=== PATIENT | female | born 1980 | race Caucasian/White ===

== ENCOUNTER 2017-08-08 12:33 | Inpatient (IN) ==
[2017-08-08] MEDS ORDERED: HYDROmorphone 2 MG/ML SYRINGE IV PRN (12:44)
[2017-08-08] MEDS ORDERED: ONDANSETRON 4 MG/2 ML VIAL IV ONE ×2 (12:44→15:26)
[2017-08-08] MEDS ORDERED: KETOROLAC 30 MG/ML VIAL IV ONE (13:06)
[2017-08-08] MEDS ORDERED: METHOCARBAMOL 1,000 MG/10 ML VIAL IV ONE (13:06)
[2017-08-08] MEDS ORDERED: 0.9 % SODIUM CHLORIDE 1,000 ML IV ONE ×3 (13:07→19:22)
[2017-08-08 13:53] LABS: Basophils # (Auto) 0 K/mcL (0.0-0.3); Basophils % (Auto) 0.2 % (0.0-2.0); Eosinophils # (Auto) 0 K/mcL (0.0-0.7); Eosinophils % (Auto) 0.4 % (0.0-7.0); Granulocytes % (Auto) 61.9 % (38.0-78.0); Lymphocytes # (Auto) 2.6 K/mcL (1.5-4.8); Lymphocytes % (Auto) 30.6 % (15.5-49.0); Mean Cell Volume 88.9 fL (80.0-100.0); Mean Corpuscular HGB Conc 33.5 g/dL (31.0-36.0); Mean Corpuscular Hemoglobin 29.8 pg (26.0-34.0); Monocytes # (Auto) 0.6 K/mcL (0.1-0.9); Monocytes % (Auto) 6.9 % (1.0-12.0); Platelet Count 261 K/mcL (140-440); RBC 4.49 M/mcL (4.00-5.20); Red Cell Distribution Width 13.8 % (11.5-14.5)
[2017-08-08 14:11] LABS: ALT/SGPT 15 U/l (0-40); Albumin 4.1 gm/dL (3.2-5.2); Albumin/Globulin Ratio 1.2 (1.0-2.3); Alkaline Phosphatase 67 U/L (39-117); Blood Urea Nitrogen 20 mg/dl (6-20)
--- NOTE | 2017-08-08 14:36 | Ultrasound Report ---
CLINICAL INFORMATION: Right lower quadrant abdominal pain. Left lower quadrant abdominal pain. TECHNIQUE: Grayscale and color flow Doppler spectral imaging COMPARISON: Previous examination dated 10/17/2014 FINDINGS: Negative gallbladder. No cholelithiasis. No gallbladder wall thickening. No pericholecystic fluid. No dilated bile ducts. Common bile that measures 5.6 mm. No intrahepatic bile duct dilatation. Normal homogeneous liver parenchyma. There is a single cyst in the left lobe measuring 15 mm. No solid mass. Normal smooth liver contour. No ascites. Visualized portions of the pancreas are negative. Right kidney measures 9.2 x 3.8 x 4.1 cm. There is a probable nonobstructing 9 mm right upper pole calculus. No solid or cystic mass. No hydronephrosis. Left kidney measures 10.4 x 4.6 x 4.8 cm. No solid or cystic mass. No hydronephrosis. No splenomegaly. Normal hepatopedal portal venous flow. Aorta and inferior vena cava are normal. Patient complains of pain in both lower quadrants. These areas were scanned and there is no focal abnormality. IMPRESSION: 1. Nonobstructing right upper pole renal calculus 2. No other abnormality. Interpreted and Authenticated by: Branden Garcia 08/08/17
[2017-08-08] MEDS ORDERED: NITROFURANTOIN SR 100 MG CAPSULE PO ONE (15:22)
[2017-08-08] MEDS ORDERED: PHENAZOPYRIDINE 200 MG TABLET PO ONE (15:22)
--- NOTE | 2017-08-08 15:24 | Emergency Department Note ---
Abdominal Pain HPI - General Chief Complaint: Abdominal Pain Stated Complaint: Left sided abdominal pain Time Seen by Provider: 08/08/17 13:06 Source: patient Mode of arrival: ambulatory Limitations: no limitations - History of Present Illness HPI Narrative: 37-year-old female comes in for left-sided pain over the last 24 hours. Has had previously but was on the right side before. Nausea vomiting cramping. Her menses stopped yesterday. Unclear if she has had a fever - Related Data Previous Rx's Medication Instructions Recorded Nitrofurantoin Monohyd/M-Cryst 100 mg PO BID #14 capsule 08/08/17 [Macrobid 100 mg Capsule] Allergies Allergy/AdvReac Type Severity Reaction Status Date / Time Penicillins Allergy Severe Anaphylaxis Verified 08/08/17 20:09 Review of Systems All systems ED: reviewed and negative except as stated. Abdominal Pain PMH - Past Medical History Attestation: Yes: The following information was validated with the patient. Medical history: Reports: migraine Surgical history ED: Reports: tonsillectomy, other (Regard IUD 6-8 years) - Social History Smoking status: Never smoker Physical Exam Vomiting on initial exam. Thin female . normocephalic atraumatic. Conjunctive are clear sclerae nonicteric. No nasal discharge or congestion. Oropharynx pink somewhat dry. Neck is supple without lymphadenopathy or thyromegaly. Heart is regular rate and rhythm no murmur appreciated. Lungs are clear to auscultation bilaterally without wheezes rales rhonchi or respiratory distress. Abdomen is soft nondistended diffusely tender in the lower quadrants as well as left CVA area. Some guarding. No pedal edema. +2 radial pulse. Alert and oriented - General Limitations: no limitations Course Vital Signs Temperature 97.5 F 08/08/17 12:33 Pulse Rate 80 08/08/17 12:33 Respiratory Rate 18 08/08/17 12:33 Blood Pressure 111/72 08/08/17 12:33 Pulse Oximetry (%) 100 08/08/17 12:33 Temperature 99.4 F H 08/09/17 06:54 Pulse Rate 99 H 08/09/17 06:54 Respiratory Rate 14 08/09/17 06:54 Blood Pressure 95/62 08/09/17 06:54 Pulse Oximetry (%) 97 08/09/17 06:54 Abdominal Pain - Lab Data Lab results reviewed: Yes I reviewed the patient's lab results. Result diagrams: 08/08/17 13:05 08/08/17 13:05 Lab Results 08/08/17 08/08/17 08/08/17 Range/Units 13:05 13:05 13:05 WBC 8.4 (4.5-11.0) K/mcL RBC 4.49 (4.00-5.20) M/mcL Hgb 13.4 (12.0-15.0) g/dL Hct 40.0 (36.0-48.0) % MCV 88.9 (80.0-100.0) fL MCH 29.8 (26.0-34.0) pg MCHC 33.5 (31.0-36.0) g/dL RDW 13.8 (11.5-14.5) % Plt Count 261 (140-440) K/mcL MPV 8.7 (7.4-10.4) fL Gran % 61.9 (38.0-78.0) % Lymph % (Auto) 30.6 (15.5-49.0) % [place] % (Auto) 6.9 (1.0-12.0) % Eos % (Auto) 0.4 (0.0-7.0) % Baso % (Auto) 0.2 (0.0-2.0) % Gran # 5.2 (1.8-8.0) K/mcL Lymph # (Auto) 2.6 (1.5-4.8) K/mcL [place] # (Auto) 0.6 (0.1-0.9) K/mcL Eos # (Auto) 0 (0.0-0.7) K/mcL Baso # (Auto) 0 (0.0-0.3) K/mcL VBG Lactic Acid (0.5-2.2) mmol/L Sodium 142 (133-145) mmol/L Potassium 4.1 (3.3-5.1) mmol/L Chloride 103 (96-108) mmol/L Carbon Dioxide 24 (22-30) mmol/L Anion Gap 15.0 (8-16) BUN 20 (6-20) mg/dl Creatinine 1.1 (0.6-1.1) mg/dl GFR Calculation 64 Glucose 111 H (70-105) mg/dL Calcium 9.1 (8.6-10.4) mg/dl Total Bilirubin 0.3 (0.0-1.0) mg/dL AST 20 (0-37) U/l ALT 15 (0-40) U/l Alkaline Phosphatase 67 (39-117) U/L Total Protein 7.4 (5.9-8.4) gm/dL Albumin 4.1 (3.2-5.2) gm/dL Globulin 3.3 (2.2-3.7) gm/dL Albumin/Globulin Ratio 1.2 (1.0-2.3) Procalcitonin 0.08 (<0.10) ng/mL Urine HCG, Qual (<20 mIU/ml) Urine Opiates Screen (NONDETECTED) Ur Opiates Confirm Ur Oxycodone Screen (NONDETECTED) Urine Methadone Screen (NONDETECTED) Ur Methadone Confirm Ur Barbiturates Screen (NONDETECTED) Ur Barbiturate Confirm Ur Phencyclidine Scrn (NONDETECTED) Urine PCP Confirm Ur Amphetamines Screen (NONDETECTED) U Benzodiazepines Scrn (NONDETECTED) U Benzodiazepine Confm Urine Cocaine Screen (NONDETECTED) Urine Cocaine Confirm U Cannabinoids Confirm U Marijuana (THC) Screen (NONDETECTED) Urine Alcohol (NONDETECTED) 08/08/17 08/08/17 08/08/17 Range/Units 14:30 15:19 15:19 WBC (4.5-11.0) K/mcL RBC (4.00-5.20) M/mcL Hgb (12.0-15.0) g/dL Hct (36.0-48.0) % MCV (80.0-100.0) fL MCH (26.0-34.0) pg MCHC (31.0-36.0) g/dL RDW (11.5-14.5) % Plt Count (140-440) K/mcL MPV (7.4-10.4) fL Gran % (38.0-78.0) % Lymph % (Auto) (15.5-49.0) % [place] % (Auto) (1.0-12.0) % Eos % (Auto) (0.0-7.0) % Baso % (Auto) (0.0-2.0) % Gran # (1.8-8.0) K/mcL Lymph # (Auto) (1.5-4.8) K/mcL [place] # (Auto) (0.1-0.9) K/mcL Eos # (Auto) (0.0-0.7) K/mcL Baso # (Auto) (0.0-0.3) K/mcL VBG Lactic Acid 1.0 (0.5-2.2) mmol/L Sodium (133-145) mmol/L Potassium (3.3-5.1) mmol/L Chloride (96-108) mmol/L Carbon Dioxide (22-30) mmol/L Anion Gap (8-16) BUN (6-20) mg/dl Creatinine (0.6-1.1) mg/dl GFR Calculation Glucose (70-105) mg/dL Calcium (8.6-10.4) mg/dl Total Bilirubin (0.0-1.0) mg/dL AST (0-37) U/l ALT (0-40) U/l Alkaline Phosphatase (39-117) U/L Total Protein (5.9-8.4) gm/dL Albumin (3.2-5.2) gm/dL Globulin (2.2-3.7) gm/dL Albumin/Globulin Ratio (1.0-2.3) Procalcitonin (<0.10) ng/mL Urine HCG, Qual Negative <20 (<20 mIU/ml) Urine Opiates Screen None detected (NONDETECTED) Ur Opiates Confirm Not Reportable Ur Oxycodone Screen None detected (NONDETECTED) Urine Methadone Screen None detected (NONDETECTED) Ur Methadone Confirm Not Reportable Ur Barbiturates Screen None detected (NONDETECTED) Ur Barbiturate Confirm Not Reportable Ur Phencyclidine Scrn None detected (NONDETECTED) Urine PCP Confirm Not Reportable Ur Amphetamines Screen None detected (NONDETECTED) U Benzodiazepines Scrn None detected (NONDETECTED) U Benzodiazepine Confm Not Reportable Urine Cocaine Screen None detected (NONDETECTED) Urine Cocaine Confirm Not Reportable U Cannabinoids Confirm Not Reportable U Marijuana (THC) Screen None detected (NONDETECTED) Urine Alcohol None detected (NONDETECTED) Urinalysis [id number] dipstick showed large leukocytes positive nitrates large amount of blood specific gravity 1.005 - Radiology Data Radiology results reviewed: Yes I reviewed the patient's radiology results. Ultrasound shows no specific findings except right sided kidney stone not causing hydronephrosis or significant problems Disposition Pt seen by [facility] [employer] only: No Clinical Impression: Pyelonephritis, Calculus of kidney Summary: Patient was initially treated for nausea with Zofran. She had to be redosed though and then given Phenergan as it just was not working. Despite getting 8 mg of Zofran and Phenergan she still was having nausea and vomiting. Likewise she got Toradol IV fluids, but her pain remained . We gave her a dose of Rocephin 2 g for the urinary tract infection. However she was not getting better so there was concern for pyelonephritis despite the ultrasound. I discussed the situation with Dr. Varma, our hospitalist, who agreed to accept patient for further care. Disposition: Xfer As Inpt ([facility]) Condition: Fair
[2017-08-08] MEDS ORDERED: cefTRIAXone 2 GM in DEXTROSE 5% IN WATER 50 ML IV ONE (15:26)
[2017-08-08] MEDS ORDERED: PROMETHAZINE 50 MG/ML AMPUL IM ONE ×2 (16:30→16:37)
[2017-08-08] MEDS ORDERED: NAPROXEN 250 MG TABLET PO ONE ×2 (17:39→17:48)
[2017-08-08] MEDS ORDERED: METOCLOPRAMIDE 10 MG/2 ML VIAL IV ONE (18:08)
[2017-08-08] MEDS ORDERED: ACETAMINOPHEN 1,000 MG/100 ML BOTTLE IV ONE (18:08)
[2017-08-08] MEDS ORDERED: IOPAMIDOL 100 ML BOTTLE IV ONE (19:11)
[2017-08-08] MEDS ORDERED: MAGNESIUM HYDROXIDE 30 ML ORAL.SUSP PO PRN (19:22)
[2017-08-08] MEDS ORDERED: IPRATROPIUM/ALBUTEROL 3 ML AMPUL.NEB NEB PRN (19:22)
[2017-08-08] MEDS ORDERED: NALOXONE HCL 0.4 MG/ML VIAL IV PRN (19:22)
[2017-08-08] MEDS ORDERED: PROCHLORPERAZINE 10 MG/2 ML VIAL IV PRN (19:22)
[2017-08-08] MEDS ORDERED: KETOROLAC 30 MG/ML VIAL IV PRN (19:22)
[2017-08-08 19:39] LABS: Amphetamine Screen,Urine NONE DETECTED (NONDETECTED); Benzodiazepines Screen,Urine NONE DETECTED (NONDETECTED); Cocaine Screen,Urine NONE DETECTED (NONDETECTED); Opiate Screen,Urine NONE DETECTED (NONDETECTED); Oxycodone, Urine Screen NONE DETECTED (NONDETECTED)
--- NOTE | 2017-08-08 20:02 | Internal Med History&Physical ---
Medical - H&P: HPI Patient information: Note initiated : 08/08/17 at 7:56 pm Service Date, if different from initiated Date: [] Patient: Kelly Houston a 37 y/o F admitted on 08/08/17 for Left sided abdominal pain. Chief Complaint: [] History of present illness: Ms. Houston is a 37 year old Female with no major pmh presented to the ER with complaints of pain in the abdomen, nausea and vomiting. Patient was in some distress during my evaluation, history from pt and her sister who was in the patients room The rober started in the right lower quadrant 2 days ago, then also on the left side from today, shanta sharp, severe, but waxing nad waning intensity,no aggravating or reliving factors. The pain is associated with severe nausea and vomiting and the patient has not been able to keep any food down. She also has some chills and rigors and therefore presented to the ER for further evaluation In the ER her Vitals on presentation were stable, labs normal, but ua was positive. USG Abdomen shows shanta renal stones, but no other major pathology. She was treated aggressively with zofran x 2, reglan, phenergan but her nause and vomiting persisted. She was given dilaudid and toradol which did help her pain but not much. The patient was therefore presented to the hospital for admission and observation of intractable nausea and vomiting secondary to UTI. All systems: reviewed and no additional remarkable complaints except as stated ( as per hpi) Medical - H&P: PMH Medical history: Medical History (Last Updated 08/08/17 @ 15:24 by Milton Hull MD) Achilles tendinitis (Acute) Migraine (Acute) Surgical history: none Family history: reviewed and not pertinent Social history: non smoker social etoh denies substance abuse. Medical - H&P: Meds Home Medications Medication Instructions Recorded Confirmed Type Nitrofurantoin Monohyd/M-Cryst 100 mg PO BID #14 capsule 08/08/17 Rx [Macrobid 100 mg Capsule] Allergies Allergy/AdvReac Type Severity Reaction Status Date / Time penicillin G AdvReac Severe Difficulty Verified 08/08/17 12:36 Breathing Medical - H&P: Exam - Constitutional Vitals: Temp Pulse Resp BP Pulse Ox 98.0 F 78 12 111/78 100 08/08/17 19:17 08/08/17 19:17 08/08/17 19:17 08/08/17 19:17 08/08/17 19:17 Exam: GENERAL: The patient is a well-developed, well-nourished in some disterss, she is shivering on exam but Is alert and oriented x3. VITAL SIGNS: Reviewed and as noted elsewhere. HEENT: Head is normocephalic and atraumatic. Extraocular muscles are intact. Pupils are equal, round, and reactive to light. Nares appeared normal. Mouth appears any without lesions. Mucous membranes are dry NECK: Normal to inspection, Supple, No lymphadenopathy or thyromegaly. LUNGS: Air entry equal on both sides, no wheezing, crackles or rhonchi noted. No accessory muscles of respiration HEART: Regular rate and rhythm normal, S1 and S2 heard, no Gallop, S3 or Rub Noted, No Gross murmur heard. ABDOMEN: Soft, tenderness in left lower quadrant , belly is nondistended. Positive bowel sounds. No hepatosplenomegaly was noted. left CVA mild EXTREMITIES: No cyanosis, clubbing, rash, lesions or edema. NEUROLOGIC: Cranial nerves II through XII are grossly intact. Motor and Sensory System Grossly Intact PSYCHIATRIC: Normal affect, Normal Mood. Appropriate Behavior. SKIN: No ulceration or wounds noted, No jaundice, No rash noted. Medical - H&P: Reslt - Labs CBC & Chem 7: 08/08/17 13:05 08/08/17 13:05 Medical - H&P: A/P - Narrative A/P Narrative: A/P Intractable Nausea and Vomiting Urinary Tract infection Abdominal pain Renal Stones Plan IV fluids and IV rocephin for UTI Await blood and urine culture Get CT Abdomen and Pelvis bruno tylenol q6, toradol 30mg q6prn dialudid 0.5mg q2hrs prn for management of pain zofran and companzine for prn nausea and vomiting. get urine drug scree, hcg is negative DVT hep sq regular diet Medical - H&P: Qual - Stroke Symptom Onset Unknown: No - VTE Deep Vein Thrombosis/Pulmonary Embolism Present on Admission: No
[2017-08-08] MEDS: 0.9 % SODIUM CHLORIDE 1,000 ML IV SCH (21:13)
[2017-08-08] MEDS: HEPARIN 5,000 UNIT/ML VIAL SQ SCH (21:53)
[2017-08-08] MEDS: HYDROmorphone 2 MG/ML SYRINGE IV PRN (21:54)
[2017-08-08] MEDS: ONDANSETRON 4 MG/2 ML VIAL IV PRN (21:54)
[2017-08-08] MEDS: PANTOPRAZOLE 40 MG VIAL IV SCH (21:54)
[2017-08-08] MEDS: 0.9 % SODIUM CHLORIDE 10 ML SYRINGE IV SCH (21:57)
[2017-08-08 22:01] LABS: Appearance,Urine CLEAR; Bacteria,Urine 0 /hpf (0); Bilirubin,Urine NEG (NEG); Color,Urine AMBER; Glucose,Urine (UA) NEGATIVE (NEG); Leukocyte Esterase,Urine 25 /uL (NEG); Nitrate,Urine COLOR INTERFERENCE (NEG); Protein,Urine NEG (NEG); Urine Blood 0.2 mg/dL (<0.03); Urine RBC 5 /hpf (0-1); Urine Squamous Epithelial Cell < 1 /hpf (0-4); Urine WBC 46 /hpf (0-4); Urobilinogen,Urine COLOR INTERFERENCE mg/dL (NEG)
[2017-08-08] MEDS: TAMSULOSIN 0.4 MG CAPSULE PO SCH (23:35)
[2017-08-09] MEDS: HYDROmorphone 2 MG/ML SYRINGE IV PRN ×3 (06:10→15:49)
[2017-08-09] MEDS: ONDANSETRON 4 MG/2 ML VIAL IV PRN (06:10)
[2017-08-09] MEDS: 0.9 % SODIUM CHLORIDE 10 ML SYRINGE IV SCH ×2 (06:11→17:37)
[2017-08-09] MEDS: 0.9 % SODIUM CHLORIDE 1,000 ML IV SCH ×3 (06:12→17:37)
--- NOTE | 2017-08-09 06:36 | Cat Scan Report ---
CLINICAL INFORMATION: Abdominal pain COMPARISON: Abdominal ultrasound dated 08/08/2017 TECHNIQUE: Axial images were obtained through the abdomen and pelvis. Sagittally and coronally reformatted images. 80 mL nonionic contrast material injected intravenously. Oral contrast material was not administered FINDINGS: Lung bases are negative. No parenchymal infiltrate or mass. No pleural fluid. No pericardial fluid. Liver is negative. There is a 15 mm cyst in the left lobe. No solid mass. No evidence for cirrhosis. There is a suggestion of subtle pericholecystic fluid but the gallbladder was normal on ultrasound dated 08/08/2017. No calcified gallstones. No dilated bile ducts. Abnormal left kidney. There is mild to moderate left hydronephrosis and hydroureter. There is a 4 mm calculus at the left ureterovesical junction. This may be within the bladder left ureteral orifice. No other left renal calculi. There is a nonobstructing right mid to upper pole stone which measures 11 mm maximally. There is a poorly defined hypoattenuating abnormality in the right upper pole. No discrete mass was identified on ultrasound examination. Small focus of bilateral nephritis is possible. Negative pancreas. No pancreatic mass per no peripancreatic abnormality. Negative spleen. No splenomegaly. Normal enhancement splenic and portal veins. Negative adrenal glands. No retroperitoneal or mesenteric lymphadenopathy. No ascites. No mechanical small bowel obstruction. Reason intrauterine device within the uterus. No adnexal mass. No free pelvic fluid. Lumbar spine, sacrum, pelvis are negative. This examination was initially interpreted by [facility]. IMPRESSION: 1. 4 mm obstructing left ureteral calculus at the left ureterovesical junction. This could be within the urinary bladder or within the orifice of the left ureter. Mild/moderate left hydronephrosis. 2. Nonobstructing right renal calculus.Well-defined hypoattenuating abnormality in the right upper pole. This is a nonspecific finding as above Interpreted and Authenticated by: Branden Garcia 08/09/17
[2017-08-09 08:22] LABS: Basophils # (Auto) 0 K/mcL (0.0-0.3); Basophils % (Auto) 0 % (0.0-2.0); Eosinophils # (Auto) 0 K/mcL (0.0-0.7); Eosinophils % (Auto) 0 % (0.0-7.0); Granulocytes % (Auto) 88.8 % (38.0-78.0); Lymphocytes # (Auto) 0.8 K/mcL (1.5-4.8); Lymphocytes % (Auto) 6.3 % (15.5-49.0); Mean Cell Volume 88.7 fL (80.0-100.0); Mean Corpuscular HGB Conc 33.9 g/dL (31.0-36.0); Monocytes # (Auto) 0.6 K/mcL (0.1-0.9); Monocytes % (Auto) 4.9 % (1.0-12.0); Platelet Count 214 K/mcL (140-440); RBC 3.82 M/mcL (4.00-5.20); Red Cell Distribution Width 14.3 % (11.5-14.5)
[2017-08-09 08:50] LABS: ALT/SGPT 11 U/l (0-40); Albumin 3.4 gm/dL (3.2-5.2); Albumin/Globulin Ratio 1.3 (1.0-2.3); Alkaline Phosphatase 53 U/L (39-117); Bilirubin,Direct < 0.2 mg/dL (0.0-0.3); Blood Urea Nitrogen 18 mg/dl (6-20); Gamma Glutamyl Transpeptidase 5 U/L (5-36); Magnesium 1.8 mg/dL (1.6-2.5); Uric Acid 6.2 mg/dL (2.5-8.0)
[2017-08-09] MEDS ORDERED: cefTRIAXone 1 GM in DEXTROSE 5% IN WATER 50 ML IV SCH (09:00)
[2017-08-09] MEDS: TAMSULOSIN 0.4 MG CAPSULE PO SCH (10:08)
[2017-08-09] MEDS: PANTOPRAZOLE 40 MG VIAL IV SCH ×2 (10:08→17:36)
[2017-08-09] MEDS: HEPARIN 5,000 UNIT/ML VIAL SQ SCH (10:56)
[2017-08-09 15:16] LABS: Blood Urea Nitrogen 18 mg/dl (6-20)
--- NOTE | 2017-08-09 15:41 | Transfer Summary ---
Transfer Discharge Sum: Prov Patient information: Note initiated : 08/09/17 at 3:40 pm Service Date, if different from initiated Date: [] Patient: Kelly Houston 37 y/o F admitted on 08/08/17 for Left Sided Abd Pain/Intractable Nausea & Vomiting. Chief Complaint: [] Date of admission: 08/08/17 19:10 Discharge Date: 08/09/17 Primary care physician: Margaret Contreras Admitting clinician: Kendra Varma Receiving physician/facility: Dr Karthik Chicas Transfer Discharge Sum: Med - Medications Active and Home Medications: Home Medications Nitrofurantoin Monohyd/M-Cryst [Macrobid 100 mg Capsule] 100 mg PO BID #14 capsule 08/08/17 [Rx] Active Medications Albuterol/Ipratropium (Duoneb) 3 ml NEB Q6HRT PRN PRN Reason: Shortness Of Breath Or Wheezing Heparin Sodium (Porcine) (Heparin) 5,000 unit SQ Q12 YUSUF Last Admin: 08/09/17 10:56 Dose: 5,000 unit Hydromorphone HCl (Dilaudid) 0.5 mg IV Q2HP PRN PRN Reason: Pain Last Admin: 08/09/17 11:23 Dose: 0.5 mg Ceftriaxone Sodium 1 gm/ (Dextrose) 50 mls @ 100 mls/hr IV DAILY YUSUF Last Admin: 08/09/17 10:09 Dose: 100 mls/hr Sodium Chloride (Sodium Chloride 0.9%) 1,000 mls @ 100 mls/hr IV .Q10H YUSUF Stop: 08/10/17 01:21 Last Admin: 08/09/17 10:09 Dose: 100 mls/hr Acetaminophen (Ofirmev) 650 mg in 65 mls @ 130 mls/hr IV Q6 UYSUF Ketorolac Tromethamine (Toradol) 30 mg IV Q6HP PRN PRN Reason: Pain Stop: 08/10/17 18:28 Magnesium Hydroxide (Milk Of Magnesia) 30 ml PO DAILYP PRN PRN Reason: Constipation Naloxone HCl (Narcan) 0.1 mg IV Q2MIN PRN PRN Reason: Opiate Reversal Ondansetron HCl (Zofran) 4 mg IV Q6HP PRN PRN Reason: Nausea And Vomiting Last Admin: 08/09/17 06:10 Dose: 4 mg Pantoprazole Sodium (Protonix) 40 mg IV BIDAC [facility] Last Admin: 08/09/17 10:08 Dose: 40 mg Prochlorperazine Edisylate (Compazine) 5 mg IV Q4HP PRN PRN Reason: Nausea And Vomiting Sodium Chloride (Saline Flush) 10 ml IV Q8 [facility] Last Admin: 08/09/17 06:11 Dose: 10 ml Tamsulosin HCl (Flomax) 0.4 mg PO BID [facility] Last Admin: 08/09/17 10:08 Dose: 0.4 mg Transfer Discharge Sum: Hosp Hospital course: Ms. Houston is a 37 year old Female with no major pmh presented to the ER with complaints of pain in the abdomen, nausea and vomiting. Patient was in some distress during my evaluation, history from pt and her sister who was in the patients room, The rober started in the right lower quadrant 2 days ago, then also on the left side from today, shanta sharp, severe, but waxing nad waning intensity,no aggravating or reliving factors. The pain is associated with severe nausea and vomiting and the patient has not been able to keep any food down. She also has some chills and rigors and therefore presented to the ER for further evaluation In the ER her Vitals on presentation were stable, labs normal, but ua was positive. USG Abdomen shows shanta renal stones, but no other major pathology no hydronephrosis.. She was treated aggressively with zofran x 2, Reglan, phenergan but her nausea and vomiting persisted. She was given Dilaudid and Toradol which did help her pain but not much. The patient was therefore presented to the hospital for admission and observation of intractable nausea and vomiting secondary to UTI. The patients was treated with IV Toradol, tylenol and Dilaudid, with improvement in symptoms, she was also started on tamsulosin 0.4m bid. CT scan of the abdomen done which shows left sided mild to moderate hydronephrosis, with stone in the ureter 4mm causing obstruction. The patient has positive ua and urine culture growing ecoli, sensitivities are pending. The patient wbc count started to trending up today, her creatinine also increased from 1.1 on admission to 1.8 this afternoon. Given her worsening situation, and the fact that she has not passed a stone yet , We called Dr Angeles a urologist, and reviewed the case with him (Dr Jay is not available for consult and we were unaware of hydronephrosis status at the time of admission of the patient as the CT was done after admission) The patient would need a stent placement and therefore needs to be transferred to [facility] for further management. Dr Chicas and Dr Angeles graciously accepted for further management. - Time Spent with Patient Total time spent providing and/or coordinating transfer services: Greater than 30 minutes Transfer Discharge Sum: Exam - Constitutional Vitals: Vital Signs Temp Pulse Pulse Resp BP BP Pulse Ox 08/09/17 12:00 98.7 F 107 H 16 107/63 99 08/09/17 07:40 104 H 98 08/09/17 06:54 99.4 F H 99 H 14 95/62 97 08/09/17 03:32 97.7 F 77 16 110/71 93 08/08/17 23:29 98.1 F 56 L 12 105/71 99 08/08/17 20:00 99 08/08/17 19:17 98.0 F 79 78 12 117/79 111/78 100 Intake and Output 08/09/17 08/09/17 08/09/17 05:59 13:59 21:59 Intake Total 510 / 510 1600 / 1600 Output Total 450 / 450 400 / 400 Balance 60 / 60 1200 / 1200 Intake: IV 1000 / 1000 Sodium Chloride 0.9% 1, 1000 / 1000 000 ml @ 100 mls/hr IV . Q10H [facility] Rx#:[id number] Oral 510 / 510 600 / 600 Output: Void Amount 450 / 450 400 / 400 Other: Meal Lunch Percent of Meal Consumed 50% Feeding Ability Independent Additional comments: Constitutional; Afebrile, cooperative, alert, not in distress. Eyes- No icterus, , No periorbital swelling Ears- Ext ear normal, hearing normal to conversation. Neck- Midline trachea, supple Respiratory system: Air Entry equal on both sides, No crackles or wheezing, no rhonchi. CVS- Rate rhythm regular, S1,S2 heard, no gallop, no rub. Abdomen- Soft nontender abdomen, no organomegaly, no tenderness, no guarding or rigidity,, left CVA tenderness. LANGUAGE INTERPRETER- AOOx3, moving all extremities, no gross focal deficit noted. Transfer Discharge Sum: Data Procedures and tests throughout hospitalization: Pending Orders 09/10/17 19:22 Admit as Inpatient Routine 08/08/17 21:56 Tamsulosin [Flomax] 0.4 mg PO BID 08/10/17 04:00 Complete Blood Count DAILY Inpatient Panel DAILY 08/11/17 04:00 Complete Blood Count DAILY Inpatient Panel DAILY 08/12/17 04:00 Complete Blood Count DAILY Inpatient Panel DAILY 08/13/17 04:00 Complete Blood Count DAILY Inpatient Panel DAILY 08/14/17 04:00 Complete Blood Count DAILY Inpatient Panel DAILY 08/15/17 04:00 Complete Blood Count DAILY Inpatient Panel DAILY 08/16/17 04:00 Complete Blood Count DAILY Inpatient Panel DAILY Transfer Discharge Sum: A/P - Plan Functional capacity at transfer: independent ambulation Overall status at transfer: patient is not back to baseline Disposition: [facility] Quality Measure Queries - VTE Deep Vein Thrombosis/Pulmonary Embolism Present on Admission: No
[2017-08-09] MEDS ORDERED: ACETAMINOPHEN 650 MG/65 ML BOTTLE IV SCH (18:32)
== END 2017-08-09 17:52 | disposition short-term general hospital (02) | DRG 694 ==
LOC: ED 12:33 → MEDSUR 12:33 → OBSVTOIN 19:10 → MEDSUR 19:15
PROVIDERS: ADMIT Internal Medicine; ATTEND Internal Medicine